=== PATIENT | female | born 1985 | race Caucasian/White ===

== ENCOUNTER 2022-05-01 11:53 | Inpatient (IN) | payer OTHER, SELFPAY ==
[2022-05-01 11:57] VITALS: BP 140/97; PULSE 84; RESP 13; TEMP 36.8; O2SAT 97; BMI 38.7
--- NOTE | 2022-05-01 12:25 | CT_ITS ---
STUDY: CT BRAIN WITHOUT CONTRAST REASON FOR EXAM: Male, 37 years old. Headache, vomiting RADIATION DOSAGE (If Supplied By Facility): CTDIvol = ( 44.99 ) mGy, DLP = ( 829.85 ) mGycm TECHNIQUE: Transaxial CT imaging of the brain was performed without administration of intravenous contrast material. Individualized dose optimization techniques were used for this CT. COMPARISON: No relevant priors. FINDINGS: Normal soft tissue structures. Normal calvarium. Normal size ventricles and extra-axial spaces for the patient''s age. Normal white matter tracts of the cerebral hemispheres. Normal basal ganglia and thalami. Normal brainstem. Normal cerebellum. There is no intracranial hemorrhage. There are no findings of an acute ischemic infarction. Normal visualized paranasal sinuses. CT/Brain/Head without Contrast IMPRESSION: Normal unenhanced CT scan of the brain. Electronically Signed: Joe Martinez MD at 13:07 EDT ,
[2022-05-01] MEDS: Metoclopramide 10 MG/2 ML Vial 5 MG IV ×2 (12:33→17:14)
[2022-05-01] MEDS: LORazepam 2 MG/ML Syringe 1 MG IV ×2 (12:35→17:13)
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
[2022-05-01] MEDS: Ondansetron 4 MG/2 ML Vial IV (14:41)
[2022-05-01] MEDS: Meclizine HCl 25 MG Tablet PO (15:34)
[2022-05-01 16:00] VITALS: BP 139/89; PULSE 81
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
[2022-05-01 17:16] VITALS: BP 142/88; PULSE 104; RESP 18; TEMP 36.1; O2SAT 98
[2022-05-01 17:31] VITALS: BMI 38.7
[2022-05-01 17:41] LABS: Absolute Lymphocyte Count 1.68 X10^3/uL (0.83-4.51); Absolute Neutrophil Count 11.1 X10^3/uL (2.0-7.7); Basophil# 0.07 X10^3/uL; Basophil% 0.5 % (0-1); Eosinophil# 0.02 X10^3/uL; Eosinophils% 0.1 % (0-5); Hematocrit 43.3 % (37-47); Hemoglobin 14.7 g/dL (12.0-15.0); Lymphocyte # 1.68 X10^3/ul (0.83-4.51); Lymphocyte % 12.6 % (19-41); Mean Corp Hgb Conc 33.9 g/dL (32-36); Mean Corpuscular Hgb 31.1 pg (27.0-32.0); Mean Corpuscular Volume 91.7 fL (81-99); Monocyte# 0.37 X10^3/uL; Monocyte% 2.8 % (0-10); NRBC Flagged by Analyzer 0 % (0-5); Neutrophil % 83.3 % (47-70); Platelet Count 203 K/mm3 (150-450); RBC Distribution Width CV 12.1 % (11.6-14.6); RBC Distribution Width SD 41.1 fl (35.1-43.9); Red Blood Count 4.72 M/mm3 (4.2-5.4); White Blood Count 13.3 K/mm3 (4.4-11.0)
[2022-05-01 17:47] LABS: Anion Gap 9 (5-15); BUN 11 mg/dL (7-18); BUN/Creat Ratio 12.8 RATIO (10-20); Calcium,Total 8.9 mg/dL (8.5-10.1); Chloride 108 mmol/L (98-107); Creatinine, Serum 0.86 mg/dL (0.55-1.02); EST Glomerular Filtration Rate 79 mL/min (>60); Est Glom Filt Rate - Afr Amer 96 mL/min (>60); Estimated Creatinine Clearance 78.09 ml/min; Glucose 132 mg/dL (74-106); Potassium 3.9 mmol/L (3.5-5.1); Sodium Level 140 mmol/L (136-145)
[2022-05-01 20:00] VITALS: BP 136/89; PULSE 99; RESP 18; TEMP 36.8; O2SAT 99
[2022-05-01] MEDS: MethylPREDNISolone 125 MG/2 ML Vial 60 MG IV (20:37)
[2022-05-01] MEDS: 0.9% Normal Saline 1,000 ML 125 ML IV (20:37)
[2022-05-01] MEDS: 0.9% Saline Lock 10 ML Syringe IV ×2 (20:37→21:24)
--- NOTE | 2022-05-01 20:39 | PCM.PN.BLA ---
Progress Note Asked to see the patient of Dr. Goodman for vertigo History of present illness: Patient is a 37-year-old white female who was in her usual state of health until today at 11 AM. She was walking the dog when she had the sudden onset of hearing loss in the left ear as well as debilitating vertigo. She denies any ringing in the left ear at this time and states that she cannot hear literally anything out of that ear. She does have ringing in the right ear but relates this to her to a traumatic brain injury sustained in the . She presented to the ER, had a CT scan of her brain and was admitted for vertigo. This has never happened to her before. She did have dizziness after her traumatic brain injury. She also admits to some hearing loss in the right ear secondary to her injury causing traumatic brain injury. She denies any ear pain fever upper respiratory infection type symptoms. PMH: Migraines Spinal cord stimulator TBI (traumatic brain injury) P Home Medications Effexor XR 1 pill PO/SL DAILY mood 05/01/22 [History Last Taken 05/01/22] [id number] 1 mg tablet 1 tab PO DAILY supplement 05/01/22 [History Last Taken 05/01/22] Allergy/AdvReac Type Severity Reaction Status Date / Time bee venom protein (honey bee) Allergy ? Anaphylaxis Verified 05/01/22 11:57 egg Allergy ? Food Verified 05/01/22 11:57 ? ? ? Allergy ? ? Surgical History?(Updated 05/01/22 @ 17:39 by Aye Cortez) History of ankle surgery adenotonsillectomy spinal cord stimulator placement Social History? Smoking Status:? Former smoker Family Hx; None ROS Review of Systems ROS Unobtainable: Denies due to encephalopathy Constitutional Constitutional: Reports fatigue, malaise and weakness; Denies anorexia, chills, fever(s) or night sweats Eyes Eyes: Denies blurry vision, change in vision or loss of vision ENT HEENT: Denies dysphagia Cardiovascular Cardiovascular: Denies chest pain, dyspnea on exertion, edema, lightheadedness, orthopnea or palpitations Respiratory/Chest Respiratory/Chest: Denies cough, dyspnea, productive cough, shortness of breath at rest, shortness of breath with exertion or wheezing Gastrointestinal Gastrointestinal: Reports nausea and vomiting; Denies abdominal pain, diarrhea, loose stools or melena Genitourinary Genitourinary: Reports urinary hesitancy and urinary incontinence; Denies burning urination, difficulty urinating, dysuria, nocturia or urinary frequency Musculoskeletal Musculoskeletal: Denies arthralgias Neurologic Neurologic: Reports dizziness; Denies confusion, disequilibrium, focal weakness, headache(s), numbness, seizure-like activity or seizures Psychiatric Psychiatric: Denies anxiety or depression Endocrine Endocrinology: Denies change in body appearance Hematologic/Lymphatic Hematologic/Lymphatic: Denies anemia Physical exam: The patient is awake alert in no acute distress. She is lying with her head of bed elevated 30 degrees and has obvious right beating horizontal nystagmus continually. This does not fatigue. Extraocular muscles are intact. Pupils equal round and reactive to light. Tympanic membrane external auditory canals are within normal limits bilaterally. Nasal exam reveals no purulence or rhinorrhea Mouth oropharynx reveals dry oral mucosa without pathology. Neck is supple no adenopathy or masses CT scan of the brain reveals no evidence of any mastoid disease, fluid in the middle ear or cholesteatoma. The brain is also normal Assessment: Acute labyrinthitis left ear. Also in the differential would include left M?ni?re syndrome versus left acoustic neuroma. Plan: The patient needs to be on high-dose steroids. Typically, we place patients with sudden sensorineural hearing loss on prednisone 1 mg/kg up to a max of 60 mg for 5 days and then wean thereafter. All other treatment is supportive (anti emetics, hydration etc.). She will need to see physical therapy and follow-up with them as an outpatient. Ideally, we also obtain an MRI of the brain to rule out acoustic neuroma, however I doubt this can be performed given the spinal stimulator. She will need an audiogram as an outpatient upon discharge.
[2022-05-01] MEDS: Ketorolac 15 MG/ML Vial IV (21:23)
[2022-05-02 02:30] VITALS: BP 138/92; PULSE 105; RESP 18; TEMP 36.7; O2SAT 95
[2022-05-02] MEDS: Ondansetron 4 MG/2 ML Vial IV ×3 (03:15→15:17)
[2022-05-02] MEDS: 0.9% Saline Lock 10 ML Syringe IV ×2 (03:15→09:23)
[2022-05-02] MEDS: 0.9% Normal Saline 1,000 ML 125 ML IV (04:45)
[2022-05-02 06:22] LABS: Absolute Lymphocyte Count 1.08 X10^3/uL (0.83-4.51); Basophil# 0.03 X10^3/uL; Basophil% 0.2 % (0-1); Hematocrit 42.4 % (37-47); Hemoglobin 14.7 g/dL (12.0-15.0); Lymphocyte # 1.08 X10^3/ul (0.83-4.51); Lymphocyte % 8.1 % (19-41); Mean Corp Hgb Conc 34.7 g/dL (32-36); Mean Corpuscular Hgb 31.2 pg (27.0-32.0); Monocyte# 0.07 X10^3/uL; Monocyte% 0.5 % (0-10); NRBC Flagged by Analyzer 0 % (0-5); Neutrophil # 12.01 X10^3/uL (2.7-7.7); Neutrophil % 90.1 % (47-70); POSITIVE MORPHOLOGY YES; Platelet Count 208 K/mm3 (150-450); RBC Distribution Width CV 12.1 % (11.6-14.6); RBC Distribution Width SD 39.9 fl (35.1-43.9); Red Blood Count 4.71 M/mm3 (4.2-5.4); White Blood Count 13.3 K/mm3 (4.4-11.0)
[2022-05-02 06:23] LABS: Differential Indicated SCAN CRITERIA MET
[2022-05-02 06:42] LABS: Anion Gap 9 (5-15); BUN 10 mg/dL (7-18); BUN/Creat Ratio 12.5 RATIO (10-20); Calcium,Total 8.6 mg/dL (8.5-10.1); Chloride 109 mmol/L (98-107); EST Glomerular Filtration Rate 86 mL/min (>60); Est Glom Filt Rate - Afr Amer 105 mL/min (>60); Estimated Creatinine Clearance 83.95 ml/min; Glucose 146 mg/dL (74-106); Potassium 3.8 mmol/L (3.5-5.1); Sodium Level 140 mmol/L (136-145)
[2022-05-02] MEDS: MethylPREDNISolone 125 MG/2 ML Vial 60 MG IV (09:22)
[2022-05-02] MEDS: Enoxaparin 40 MG/0.4 ML Syringe SC (09:23)
[2022-05-02] MEDS: Prenatal Vits Tablet 1 TABLET PO (09:23)
[2022-05-02 10:00] VITALS: BP 144/91; PULSE 93; RESP 16; TEMP 36.6; O2SAT 96
--- NOTE | 2022-05-02 10:08 | CASEMGMT ---
BELEM CM in to pt room, pt states [facility] would [facility]. Updated registration. Discussed with patient that outpatient PT was recommended for vertigo, pt agreeable and aware that a script will be given tomorrow upon dc.
--- NOTE | 2022-05-02 10:16 | PN.HOSP_ITS ---
Subjective Subjective Patient seen and examined. He still complains of nausea, though he hasnt vomited much this morning. Review of systems otherwise negative. Still complains of deafness in left ear. Objective Data Objective Data Vital Signs: Vital Signs Temp Pulse Resp BP Pulse Ox O2 Del Method 98.1 F 105 H 18 138/92 H 95 Room Air 05/02/22 02:30 05/02/22 02:30 05/02/22 02:30 05/02/22 02:30 05/02/22 02:30 05/02/22 02:30 Oxygen Delivery Method Room Air Weight: 225 lb 15.581 oz Body Mass Index (BMI) 38.7 Intake & Output: Intake and Output for Last 24 Hours 04/30/22 05/01/22 05/02/22 23:59 23:59 23:59 Intake Total 1000 / 1000 Output Total 0 / 0 Balance 1000 / 1000 Lab / Micro Data Result Diagrams: 05/02/22 05:30 05/02/22 05:30 Labs: Laboratory Results - last 24 hr 05/01/22 17:09: WBC 13.3 H, RBC 4.72, Hgb 14.7, Hct 43.3, MCV 91.7, MCH 31.1, MCHC 33.9, RDW Std Deviation 41.1, RDW Coeff of [place] 12.1, Plt Count 203, MPV 13.0 H, Immature Gran % (Auto) 0.700, Neut % (Auto) 83.3 H, Lymph % (Auto) 12.6 L, [place] % (Auto) 2.8, Eos % (Auto) 0.1, Baso % (Auto) 0.5, Absolute Neuts (auto) 11.1 H, Absolute Lymphs (auto) 1.68, Nucleated RBC % 0 05/01/22 17:09: Sodium 140, Potassium 3.9, Chloride 108 H, Carbon Dioxide 23.0, Anion Gap 9, BUN 11, Creatinine 0.86, Estim Creat Clear Calc 78.09, Est GFR (MDRD) Af Amer 96, Est GFR (MDRD) Non-Af 79, BUN/Creatinine Ratio 12.8, Glucose 132 H, Calcium 8.9 05/02/22 05:30: WBC 13.3 H, RBC 4.71, Hgb 14.7, Hct 42.4, MCV 90.0, MCH 31.2, MCHC 34.7, RDW Std Deviation 39.9, RDW Coeff of [place] 12.1, Plt Count 208, MPV 13.0 H, Immature Gran % (Auto) 1.100 H, Neut % (Auto) 90.1 H, Lymph % (Auto) 8.1 L, [place] % (Auto) 0.5, Eos % (Auto) 0.0, Baso % (Auto) 0.2, Absolute Neuts (auto) 12.0 H, Absolute Lymphs (auto) 1.08, Nucleated RBC % 0 05/02/22 05:30: Sodium 140, Potassium 3.8, Chloride 109 H, Carbon Dioxide 22.0, Anion Gap 9, BUN 10, Creatinine 0.80, Estim Creat Clear Calc 83.95, Est GFR (MDRD) Af Amer 105, Est GFR (MDRD) Non-Af 86, BUN/Creatinine Ratio 12.5, Glucose 146 H, Calcium 8.6 Radiography Diagnostic Testing: Radiology Impression Brain CT 05/01/22 12:25 IMPRESSION: Normal unenhanced CT scan of the brain. Electronically Signed: Joe Martinez MD at 13:07 EDT Reading Location ID and State: [facility] , Service support , Rhythm Strip Rhythm Strip: Sinus Rhythm Rate: 80 Ectopy: None Physical Exam Const alert, oriented x3 and no apparent distress Constitutional Narrative: looks uncomfortable due to nausea and vomiting General Appearance: cooperative HEENT normocephalic, head/scalp atraumatic, hearing grossly normal bilaterally and moist oral mucous membranes Eyes PERRL, EOMs intact bilaterally and conjunctivae normal Neck no lymphadenopathy, supple and no JVD Resp normal respiratory effort, no retractions, no use of accessory muscles and clear to auscultation bilaterally Cardio regular rate, regular rhythm, S1 normal heart sound, S2 normal heart sound and no murmurs GI normal to inspection, nondistended, normoactive bowel sounds, soft to palpation and non-tender Extremity normal to inspection, full ROM and no clubbing, cyanosis or edema General Extremity: edema Neuro oriented x3, moves all extremities and no focal motor deficits Neuro Narrative: markedly decreased hearing in left ear, left ear visualised. No vesicular eruption visualised. Sensorium / Orientation: awake and alert Motor Exam: strength 5/5 throughout Psych affect normal Assessment & Plan Assessment/Plan (1) Acute severe vertigo: (2) Labyrinthitis of left ear: PLAN: Plan #Intractable vertigo due to probable acute labyrinthitis of the left ear * still complains of intractable nausea and vomiting. Still having deafness in left ear and vertigo * PT/OT consult * hydrate with IVF * discussed with ENT; consult ENT, and give IV solumedrol 60mg daily * get MRI of the brain with contrast to rule out any intracranial pathology * fall precautions * IV zofran prn * CT of the brain showed no acute intracranial pathology * #Depression: on Effexor #History of traumatic brain injury * happened in [place] 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 * follow up with PCP on outpatient basis. DVT prophylaxis: lovenox Charges/Coding Visit Charges Inpatient E&M: 02706 Subs Hosp L2
[2022-05-02 17:00] VITALS: BP 146/104; PULSE 103; RESP 16; TEMP 37.1; O2SAT 94
[2022-05-02 20:53] VITALS: BP 158/97; PULSE 101; RESP 16; TEMP 36.6; O2SAT 97
[2022-05-03 03:00] VITALS: BP 124/81; PULSE 92; RESP 16; TEMP 36.7; O2SAT 93
[2022-05-03 06:00] LABS: Absolute Lymphocyte Count 2.68 X10^3/uL (0.83-4.51); Absolute Neutrophil Count 14.7 X10^3/uL (2.0-7.7); Basophil# 0.05 X10^3/uL; Basophil% 0.3 % (0-1); Eosinophil# 0.01 X10^3/uL; Eosinophils% 0.1 % (0-5); Hematocrit 39.9 % (37-47); Hemoglobin 13.6 g/dL (12.0-15.0); Lymphocyte # 2.68 X10^3/ul (0.83-4.51); Mean Corp Hgb Conc 34.1 g/dL (32-36); Mean Corpuscular Hgb 30.9 pg (27.0-32.0); Mean Corpuscular Volume 90.7 fL (81-99); Mean Platelet Vol. 12.9 fl (6.2-12.0); Monocyte# 1.55 X10^3/uL; Monocyte% 8.1 % (0-10); NRBC Flagged by Analyzer 0 % (0-5); Neutrophil # 14.69 X10^3/uL (2.7-7.7); Neutrophil % 76.7 % (47-70); POSITIVE DIFFERENTIAL YES; Platelet Count 204 K/mm3 (150-450); RBC Distribution Width CV 12.2 % (11.6-14.6); RBC Distribution Width SD 40.5 fl (35.1-43.9); White Blood Count 19.1 K/mm3 (4.4-11.0)
[2022-05-03 06:08] LABS: Differential Indicated SCAN CRITERIA MET
[2022-05-03 06:28] LABS: Differential Comment SCANNED
[2022-05-03 06:32] LABS: Anion Gap 9 (5-15); BUN 13 mg/dL (7-18); BUN/Creat Ratio 14.7 RATIO (10-20); Calcium,Total 8.4 mg/dL (8.5-10.1); Chloride 110 mmol/L (98-107); Creatinine, Serum 0.89 mg/dL (0.55-1.02); EST Glomerular Filtration Rate 77 mL/min (>60); Est Glom Filt Rate - Afr Amer 93 mL/min (>60); Estimated Creatinine Clearance 75.46 ml/min; Glucose 87 mg/dL (74-106); Potassium 3.5 mmol/L (3.5-5.1); Sodium Level 143 mmol/L (136-145)
[2022-05-03] MEDS: Ondansetron 4 MG/2 ML Vial IV (08:48)
[2022-05-03] MEDS: 0.9% Saline Lock 10 ML Syringe IV ×2 (08:48→21:47)
[2022-05-03 09:00] VITALS: TEMP 37
--- NOTE | 2022-05-03 09:39 | PN.HOSP_ITS ---
Subjective Subjective Patient seen and examined. He feels better today and was tolerating a diet. He complained about some swelling at the site of the IV line insertion. Nausea, vomiting and vertigo have improved markedly. Review of systems is otherwise negative. He has remained hemodynamically stable. Objective Data Objective Data Vital Signs: Vital Signs Temp Pulse Resp BP Pulse Ox O2 Del Method 98.1 F 92 16 124/81 H 93 Room Air 05/03/22 03:00 05/03/22 03:00 05/03/22 03:00 05/03/22 03:00 05/03/22 03:00 05/03/22 03:00 Oxygen Delivery Method Room Air Weight: 225 lb 15.581 oz Body Mass Index (BMI) 38.7 Intake & Output: Intake and Output for Last 24 Hours 05/01/22 05/02/22 05/03/22 23:59 23:59 23:59 Intake Total 2290 / 2290 Output Total 200 / 200 Balance 2089 / 2089 Lab / Micro Data Result Diagrams: 05/03/22 04:53 05/03/22 04:53 Labs: Laboratory Results - last 24 hr 05/03/22 04:53: WBC 19.1 H, RBC 4.40, Hgb 13.6, Hct 39.9, MCV 90.7, MCH 30.9, MCHC 34.1, RDW Std Deviation 40.5, RDW Coeff of Kwesi 12.2, Plt Count 204, MPV 12.9 H, Immature Gran % (Auto) 0.800, Neut % (Auto) 76.7 H, Lymph % (Auto) 14.0 L, [place] % (Auto) 8.1, Eos % (Auto) 0.1, Baso % (Auto) 0.3, Absolute Neuts (auto) 14.7 H, Absolute Lymphs (auto) 2.68, Nucleated RBC % 0, Differential Comment SCANNED, Diff Path Review December05/03/22 04:53: Sodium 143, Potassium 3.5, Chloride 110 H, Carbon Dioxide 24.0, Anion Gap 9, BUN 13, Creatinine 0.89, Estim Creat Clear Calc 75.46, Est GFR (MDRD) Af Amer 93, Est GFR (MDRD) Non-Af 77, BUN/Creatinine Ratio 14.7, Glucose 87, Calcium 8.4 L Rhythm Strip Rhythm Strip: Sinus Rhythm Rate: 80 Ectopy: None Physical Exam Const alert, oriented x3 and no apparent distress General Appearance: cooperative HEENT normocephalic, head/scalp atraumatic, hearing grossly normal bilaterally and moist oral mucous membranes Eyes PERRL, EOMs intact bilaterally and conjunctivae normal Neck no lymphadenopathy, supple and no JVD Resp normal respiratory effort, no retractions, no use of accessory muscles and clear to auscultation bilaterally Cardio regular rate, regular rhythm, S1 normal heart sound, S2 normal heart sound and no murmurs GI normal to inspection, nondistended, normoactive bowel sounds, soft to palpation and non-tender Extremity normal to inspection, full ROM and no clubbing, cyanosis or edema General Extremity: edema Neuro oriented x3, moves all extremities and no focal motor deficits Neuro Narrative: still has decreased hearing in left ear Sensorium / Orientation: awake and alert Motor Exam: strength 5/5 throughout Psych affect normal Assessment & Plan Assessment/Plan (1) Acute severe vertigo: (2) Labyrinthitis of left ear: PLAN: Plan #Intractable vertigo due to probable acute labyrinthitis of the left ear * nausea and vomiting has improved markedly, as well as vertigo * PT/OT on board * On IV solumedrol 60mg daily x 5 days * CT of the brain showed no acute intracranial pathology * MRI of the brain couldnt be done because he has a spinal stimulator in situ * * #Depression: on Effexor #History of traumatic brain injury * happened in [place] 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 * follow up with PCP on outpatient basis. DVT prophylaxis: lovenox Charges/Coding Visit Charges Inpatient E&M: 70254 Subs Hosp L2
--- NOTE | 2022-05-03 10:00 | CASEMGMT ---
BELEM AMADOR Assessment: Face to Face with pt for initial transition planning/care coordination assessment. BELEM AMADOR introduced self and role at [facility], pt voices understanding and consents to assessment. Pt is A/O x4 and answers all questions appropriately at this time. Pt sitting up on edge of bed in no distress. Care providers, pharmacy, and demographics verified/updated. Admitting Dx: nausea, severe vertigo PCP:[facility], pt could not remember name of physician. Specialists:Pt states he has seen the TBI clinic and other specialists within the [place]. Preferred [facility]acy: [facility] Insurance: [place] Prescription Benefit: yes LW/HPOA: Pt states he has a LW/DPOA and his DPOA is his mother Snehal Villalba. He is aware this is not on file at [facility] and can be brought in to be scanned into the chart. LNOK: Snehal Villalba, mother Living Arrangements: Pt lives with 31 year old brother that he takes care of. Pt reports being I in ADL's and denies concerns at home. Transportation: Pt drives self and denies concerns with transportation. DME/HHC/SNF: Pt has a cane in the car but does not use often. Pt also has a walker but is not sure where it is currently. Pt denies hx of HHC or SNF stays. Pt states no concerns with going home at time of dc. He states he needs to be able to drive and take care of brother. Pt then became tearful at the end of the assessment stating he was overwhelmed. Pt states has had TBI in the past and has not had anything like this before happen as far as losing all hearing in the ear. Pt is agreeable to speaking to SW. Updated SW. Discussed outpt PT with pt for vertigo. Pt did not want BELEM AMADOR to set up appt as he is not sure when he can go. He is aware that a script will be provided to him at dc. Green sheet on chart. Pt states no further concerns/needs. CM to follow. Advised pt to ask CM if any further question/concerns/needs arise, voices understanding. Pt Goal: Home with outpt therapy script Plan: Home with outpt therapy script
[2022-05-03] MEDS: Prenatal Vits Tablet 1 TABLET PO (11:06)
[2022-05-03] MEDS: MethylPREDNISolone 125 MG/2 ML Vial 60 MG IV (11:06)
[2022-05-03] MEDS: Enoxaparin 40 MG/0.4 ML Syringe SC (11:07)
[2022-05-03] MEDS: amLODIPine 5 MG Tablet PO (12:48)
[2022-05-03 13:44] LABS: Pathologist Review Reviewed
[2022-05-03 15:00] VITALS: BP 149/94; PULSE 85; RESP 16; TEMP 36.9; O2SAT 96
[2022-05-03] MEDS: Nystatin Powder 15gm Bottle 1 APPLIC TOPICAL (15:41)
[2022-05-03] MEDS: oxyCODONE 5 MG Tablet PO (17:00)
--- NOTE | 2022-05-03 17:08 | CASEMGMT ---
Social Work SW received referral from RN for mental health concerns. SW met with pt and introduced self and role of SW. 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 New illness is concerning to pt as he states it is uncertain if symptoms will resolve and or be permanent. SW provided supportive listening and discussed mental health with pt. Pt does have psychiatry services through the [place] but is unhappy with them due to everything being virtual. [facility]. [facility] and [facility]. SW provided community resources to pt to assist with transportation concerns, counseling services and [employer]. Pt aunt present during conversation and pt appreciative of her support and agreeable for her to be in room during conversation. SW will remain available if further needs arise. MELVIN Masters
[2022-05-03 21:42] VITALS: BP 124/94; PULSE 71; RESP 18; TEMP 36.8; O2SAT 96
[2022-05-03] MEDS: Acetaminophen 325 MG Tablet 650 MG PO (22:22)
[2022-05-04 06:06] LABS: Absolute Lymphocyte Count 3.42 X10^3/uL (0.83-4.51); Absolute Neutrophil Count 11.6 X10^3/uL (2.0-7.7); Basophil# 0.07 X10^3/uL; Basophil% 0.4 % (0-1); Eosinophil# 0.01 X10^3/uL; Eosinophils% 0.1 % (0-5); Hematocrit 40.1 % (37-47); Hemoglobin 13.4 g/dL (12.0-15.0); Lymphocyte # 3.42 X10^3/ul (0.83-4.51); Lymphocyte % 20.5 % (19-41); Mean Corp Hgb Conc 33.4 g/dL (32-36); Mean Corpuscular Volume 89.9 fL (81-99); Mean Platelet Vol. 12.9 fl (6.2-12.0); Monocyte# 1.43 X10^3/uL; Monocyte% 8.6 % (0-10); NRBC Flagged by Analyzer 0 % (0-5); Neutrophil # 11.58 X10^3/uL (2.7-7.7); Neutrophil % 69.2 % (47-70); Platelet Count 199 K/mm3 (150-450); RBC Distribution Width CV 12.1 % (11.6-14.6); RBC Distribution Width SD 39.4 fl (35.1-43.9); Red Blood Count 4.46 M/mm3 (4.2-5.4); White Blood Count 16.7 K/mm3 (4.4-11.0)
[2022-05-04 06:34] VITALS: BP 116/88; PULSE 79; RESP 18; TEMP 36.6; O2SAT 98
[2022-05-04] MEDS: Nystatin Powder 15gm Bottle 1 APPLIC TOPICAL (06:35)
[2022-05-04 06:38] LABS: Anion Gap 7 (5-15); BUN 15 mg/dL (7-18); BUN/Creat Ratio 16.6 RATIO (10-20); Calcium,Total 8.3 mg/dL (8.5-10.1); Chloride 106 mmol/L (98-107); EST Glomerular Filtration Rate 75 mL/min (>60); Est Glom Filt Rate - Afr Amer 91 mL/min (>60); Estimated Creatinine Clearance 74.62 ml/min; Glucose 95 mg/dL (74-106); Potassium 3.7 mmol/L (3.5-5.1); Sodium Level 139 mmol/L (136-145)
[2022-05-04 08:55] VITALS: BP 137/80; PULSE 93; RESP 16; TEMP 36.7; O2SAT 97
[2022-05-04] MEDS: amLODIPine 5 MG Tablet PO (09:00)
[2022-05-04] MEDS: Enoxaparin 40 MG/0.4 ML Syringe SC (09:00)
[2022-05-04] MEDS: Prenatal Vits Tablet 1 TABLET PO (09:00)
[2022-05-04] MEDS: MethylPREDNISolone 125 MG/2 ML Vial 60 MG IV (09:01)
[2022-05-04] MEDS: Acetaminophen 325 MG Tablet 650 MG PO (09:04)
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
[2022-05-04] MEDS: Meclizine 12.5 MG Tablet PO (12:53)
== END 2022-05-04 13:50 | disposition home or self-care (01) | DRG 149 ==
LOC: ED 16:53 → MS3 17:20
PROVIDERS: Admitting Provider Student in an Organized Health Care Education/Training Program; Emergency Provider Emergency Medicine; Visit Provider Student in an Organized Health Care Education/Training Program
DX: H83.02 Labyrinthitis, left ear (principal); F32.A Depression, unspecified; F64.8 Other gender identity disorders; Z87.891 Personal history of nicotine dependence; H91.92 Unspecified hearing loss, left ear; Z87.820 Personal history of traumatic brain injury
CPT/HCPCS: 36415; 70450; 80048; 85025; 97162; 97166; 97530; 99285; 99406; J7030; A4216; J2405

== ENCOUNTER 2023-01-02 20:09 | Emergency (ER) | payer OTHER, SELFPAY ==
[2023-01-02 20:10] VITALS: BP 183/90; PULSE 101; RESP 18; TEMP 36.4; O2SAT 99
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
[2023-01-02] MEDS: predniSONE 20 MG Tablet 40 MG PO (20:29)
[2023-01-02 20:30] VITALS: BMI 40.2
== END 2023-01-02 20:53 | disposition home or self-care (01) ==
PROVIDERS: Emergency Provider Emergency Medicine; Visit Provider Emergency Medicine
DX: T63.441A Toxic effect of venom of bees, accidental (unintentional), initial encounter (principal); I10 Essential (primary) hypertension; Z87.891 Personal history of nicotine dependence; Z79.899 Other long term (current) drug therapy
CPT/HCPCS: 99283

== ENCOUNTER 2023-03-14 19:58 | Emergency (ER) | payer OTHER, SELFPAY ==
[2023-03-14 19:59] VITALS: BP 152/110; PULSE 109; RESP 18; TEMP 36.7; O2SAT 98; BMI 38.6
[2023-03-14 20:14] VITALS: O2SAT 98
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
[2023-03-14] MEDS: Benzonatate 100 MG Capsule 200 MG PO (20:32)
--- NOTE | 2023-03-14 20:32 | RAD_ITS ---
INDICATION: cough EXAMINATION/TECHNIQUE: X-RAY - XR Chest 1 View COMPARISON: FINDINGS: LINES/DEVICES: This is a stimulator at the lower cervical region. LUNGS: No consolidation, edema or effusion. No pneumothorax. MEDIASTINUM AND CARDIOVASCULAR STRUCTURES: Cardiac silhouette not enlarged. Central airways and mediastinal contour are unremarkable. BONES AND SOFT TISSUES: Unremarkable. RAD/Chest 1 View (Portable) IMPRESSION: No radiographic evidence of acute cardiopulmonary disease. Electronically Signed: Scott Patton DO at 21:18 EDT ,
[2023-03-14 21:55] VITALS: RESP 15; O2SAT 98
== END 2023-03-14 22:01 | disposition home or self-care (01) ==
PROVIDERS: Emergency Provider Emergency Medicine; Visit Provider Emergency Medicine
DX: U07.1 COVID-19 (principal); Z87.891 Personal history of nicotine dependence
CPT/HCPCS: 71045; 87428; 87880; 99283

== ENCOUNTER 2024-02-23 09:30 | Emergency (ER) | payer OTHER, SELFPAY ==
[2024-02-23] VITALS (7 sets, daily range): BP systolic 132–178; BP diastolic 80–113; PULSE 83–111; RESP 10–22; TEMP 35.6; O2SAT 97–100; BMI 39.5
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
[2024-02-23] MEDS: Doxycycline 100 MG CAPSULE PO (10:01)
[2024-02-23] MEDS: Lidocaine 1% (20 ml mdv) 20 ML Vial INFILT (10:01)
[2024-02-23] MEDS: Midazolam 2 MG/2 ML Syringe IV (12:47)
== END 2024-02-23 13:20 | disposition home or self-care (01) ==
PROVIDERS: Emergency Provider Emergency Medicine; Visit Provider Emergency Medicine
DX: L02.412 Cutaneous abscess of left axilla (principal); Z87.891 Personal history of nicotine dependence; Z87.820 Personal history of traumatic brain injury
CPT/HCPCS: 10060; 99283; J7030; A4216

== ENCOUNTER 2024-12-13 12:01 | Emergency (ER) | payer OTHER, SELFPAY ==
[2024-12-13 12:03] VITALS: BP 177/118; PULSE 91; RESP 18; TEMP 36.8; O2SAT 95; BMI 38.0
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
== END 2024-12-13 12:51 | disposition home or self-care (01) ==
LOC: ED 12:49
PROVIDERS: Emergency Provider Emergency Medicine; Visit Provider Emergency Medicine
DX: S06.0X0A Concussion without loss of consciousness, initial encounter (principal); M70.42 Prepatellar bursitis, left knee; S49.92XA Unspecified injury of left shoulder and upper arm, initial encounter; Z87.891 Personal history of nicotine dependence; X58.XXXA Exposure to other specified factors, initial encounter
CPT/HCPCS: 99282

== ENCOUNTER 2024-12-15 02:50 | Emergency (ER) | payer OTHER, SELFPAY ==
[2024-12-15 02:51] VITALS: BP 182/106; PULSE 135; RESP 18; TEMP 37.2; O2SAT 98; BMI 38.9
--- NOTE | 2024-12-15 03:17 | CT_ITS ---
PROCEDURE: BRAIN/HEAD WITHOUT CONTRAST 12/15/2024 REASON FOR EXAM: HEAD INJURY TECHNIQUE: Head CT without intravenous contrast. Coronal and Sagittal reconstruction series were provided. One or more dose reduction techniques were used (e.g., Automated exposure control, adjustment of the mA and/or kV according to patient size, use of iterative reconstruction technique. RADIATION DOSE SUMMARY: CTDlvol: 44.99 mGy DLP: 897.35 mGycm COMPARISON: 05/01/2022 FINDINGS: No intracranial hemorrhage, mass effect or calvarial fracture. The ventricles are within limits and midline. The urban-white differentiation appears preserved. The paranasal sinuses, mastoids and orbits appear within limits. CT/Brain/Head without Contrast IMPRESSION: No intracranial hemorrhage, mass effect or calvarial fracture. Reading Location: [id number]
--- NOTE | 2024-12-15 03:17 | EKG12_ITS ---
Test Reason : PALPITATIONS Blood Pressure : */* mmHG Vent. Rate : 124 BPM Atrial Rate : 124 BPM P-R Int : 154 ms QRS Dur : 122 ms QT Int : 310 ms P-R-T Axes : 21 108 26 degrees QTcB Int : 445 ms Sinus tachycardia Right bundle branch block Abnormal ECG Confirmed by Adalid Perez ([id number]), commercial production editor TIRSO LOMBARDI ([id number]) on 12/17/2024 12:05:50 PM Referred By: [facility] Confirmed By: Adalid Perez
[2024-12-15] MEDS: cloNIDine HCl 0.1 MG Tablet PO (03:22)
[2024-12-15 03:25] LABS: Absolute Lymphocyte Count 3.38 X10^3/uL (0.83-4.51); Absolute Neutrophil Count 12.5 X10^3/uL (2.0-7.7); Basophil# 0.13 X10^3/uL; Basophil% 0.7 % (0-1); Eosinophil# 0.26 X10^3/uL; Eosinophils% 1.5 % (0-5); Hematocrit 44.8 % (37-47); Hemoglobin 15.5 g/dL (12.0-15.0); Lymphocyte # 3.38 X10^3/ul (0.83-4.51); Lymphocyte % 19.1 % (19-41); Mean Corp Hgb Conc 34.6 g/dL (32-36); Mean Corpuscular Hgb 30.5 pg (27.0-32.0); Mean Platelet Vol. 12.8 fl (6.2-12.0); Monocyte% 7.4 % (0-10); NRBC Flagged by Analyzer 0 % (0-5); Neutrophil # 12.51 X10^3/uL (2.7-7.7); Neutrophil % 70.8 % (47-70); Platelet Count 243 K/mm3 (150-450); RBC Distribution Width CV 12.1 % (11.6-14.6); RBC Distribution Width SD 38.9 fl (35.1-43.9); Red Blood Count 5.09 M/mm3 (4.2-5.4); White Blood Count 17.7 K/mm3 (4.4-11.0)
[2024-12-15 04:00] VITALS: BP 163/104; PULSE 106; RESP 18; O2SAT 97
[2024-12-15] MEDS: Metoclopramide 10 MG/2 ML Vial IV (04:04)
[2024-12-15] MEDS: DiphenhydrAMINE 50 MG/ML Syringe IV (04:04)
[2024-12-15] MEDS: Ketorolac 30 MG/ML Syringe IV (04:04)
[2024-12-15 04:17] LABS: Anion Gap 13 (5-15); BUN 11 mg/dL (4-19); BUN/Creat Ratio 7.6 RATIO (10-20); Carbon Dioxide 18.1 mmol/L (21.0-32.0); Chloride 105 mmol/L (98-108); Creatinine, Serum 1.41 mg/dL (0.70-1.20); EST Glomerular Filtration Rate 49 (>60); Estimated Creatinine Clearance 63.25 ml/min (50-250); Glucose 225 mg/dL (70-99); Potassium 3.8 mmol/L (3.3-5.1); Sodium Level 137 mmol/L (133-145)
[2024-12-15 04:30] VITALS: BP 144/93; PULSE 106; RESP 18; O2SAT 97
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
[2024-12-15 05:19] VITALS: BP 148/95; PULSE 101; RESP 18; TEMP 36.8; O2SAT 98
== END 2024-12-15 05:24 | disposition home or self-care (01) ==
PROVIDERS: Emergency Provider Emergency Medicine; Visit Provider Emergency Medicine
DX: I10 Essential (primary) hypertension (principal); S06.0X0A Concussion without loss of consciousness, initial encounter; Z87.891 Personal history of nicotine dependence; Z87.820 Personal history of traumatic brain injury; S00.31XA Abrasion of nose, initial encounter; S00.81XA Abrasion of other part of head, initial encounter; W01.10XA Fall on same level from slipping, tripping and stumbling with subsequent striking against unspecified object, initial encounter
CPT/HCPCS: 70450; 80048; 83735; 85025; 93005; 96374; 96375; 99285; A4216